=== PATIENT | female | born 1990 | race Two or more races ===

== ENCOUNTER 2020-05-17 00:19 | Emergency (ER) | payer OTHER ==
[~2020-05-17] VITALS: Ht 162.6 cm; Wt 73.5 kg
[2020-05-17] MEDS ORDERED: DOLOGESIC 500-1 EACH PO (04:10)
== END 2020-05-17 04:43 | disposition home or self-care (01) ==
LOC: ER 00:19
DX: R07.89 Other chest pain (principal); R10.13 Epigastric pain

== ENCOUNTER 2022-03-02 18:46 | Emergency (ER) | payer OTHER ==
[~2022-03-02] VITALS: Ht 162.6 cm; Wt 65.8 kg
[~2022-03-02 18:46] MED LIST: DOLOGESIC 500-1 EACH PO
[2022-03-02] MEDS ORDERED: EC-NAPROSYN375 MG PO (23:27)
[2022-03-02] MEDS ORDERED: ORPHENADRINE C100 MG PO (23:27)
== END 2022-03-03 00:39 | disposition home or self-care (01) ==
LOC: ER 18:46
DX: S39.82XA Other specified injuries of lower back, initial encounter (principal); V49.9XXA Car occupant (driver) (passenger) injured in unspecified traffic accident, initial encounter; Y93.89 Activity, other specified; Y92.488 Other paved roadways as the place of occurrence of the external cause; Y99.9 Unspecified external cause status; M62.830 Muscle spasm of back; Z88.0 Allergy status to penicillin